=== PATIENT | female | born 1990 | race Caucasian/White ===

== ENCOUNTER 2018-12-05 18:15 | Emergency (ER) | payer OTHER ==
[~2018-12-05] VITALS: Ht 167.6 cm; Wt 114.1 kg
--- NOTE | 2018-12-05 18:42 | ED.ADGEN ---
Adult General Chief Complaint Chief Complaint flank pain HPI HPI 28 years old female presented to the emergency department with right flank pain radiating to the right lower quadrant associated with a urinary symptoms including dysuria hematuria and frequency also fever of 100 home. Nausea no vomiting no diarrhea no any other symptoms Review of Systems Review of Systems Constitutional: Denies fever or chills [] Eyes: Denies change in visual acuity, redness, or eye pain [] HENT: Denies nasal congestion or sore throat [] Respiratory: Denies cough or shortness of breath [] Cardiovascular: No additional information not addressed in HPI [] GI: vomiting, bloody stools or diarrhea [] : Denies dysuria or hematuria [] Musculoskeletal: Denies back pain or joint pain [] Integument: Denies rash or skin lesions [] Neurologic: Denies headache, focal weakness or sensory changes [] Endocrine: Denies polyuria or polydipsia [] All other systems were reviewed and found to be within normal limits, except as documented in this note. Current Medications Current Medications Current Medications Medications (Trade) Dose Ordered Sig/Efrain Start Time Stop Time Status Last Admin Dose Admin Ketorolac Tromethamine (Toradol 30mg Vial) 30 mg 1X ONCE 12/05/18 19:30 12/05/18 19:31 DC Allergies Allergies Allergies Coded Allergies Type Severity Reaction Last Updated Verified adhesive tape Allergy Intermediate 12/05/18 Yes Physical Exam Physical Exam Constitutional: Well developed, well nourished, no acute distress, non-toxic appearance. [] HENT: Normocephalic, atraumatic, bilateral external ears normal, oropharynx moist, no oral exudates, nose normal. [] Eyes: PERRLA, EOMI, conjunctiva normal, no discharge. [] Neck: Normal range of motion, no tenderness, supple, no stridor. [] Cardiovascular:Heart rate regular rhythm, no murmur [] Lungs & Thorax: Bilateral breath sounds clear to auscultation [] Abdomen: Bowel sounds normal, soft, no tenderness, no masses, no pulsatile masses. [] Skin: Warm, dry, no erythema, no rash. [] Back: No tenderness, no CVA tenderness. [] Extremities: No tenderness, no cyanosis, no clubbing, ROM intact, no edema. [] Neurologic: Alert and oriented X 3, normal motor function, normal sensory function, no focal deficits noted. [] Psychologic: Affect normal, judgement normal, mood normal. [] Current Patient Data Vital Signs Vital Signs Date Time Temp Pulse Resp B/P (MAP) Pulse Ox O2 Delivery O2 Flow Rate FiO2 12/05/18 18:15 98.0 86 18 97 Room Air Lab Results Laboratory Tests Test 12/05/18 18:31 12/05/18 18:55 12/05/18 19:05 Urine Collection Type Unknown Urine Color Adore Urine Clarity Clear Urine pH 5.0 Urine Specific Hugo 1.025 Urine Protein 100 mg/dl (NEG-TRACE) Urine Glucose (UA) 100 mg/dL (NEG) Urine Ketones (Stick) Trace mg/dL (NEG) Urine Blood Small (NEG) Urine Nitrite Pos (NEG) Urine Bilirubin Neg (NEG) Urine Urobilinogen Dipstick 1 mg/dL (0.2 mg/dL) Urine Leukocyte Esterase Trace (NEG) Urine RBC 3-5 /HPF (0-2) Urine WBC 20-40 /HPF (0-4) Urine Squamous Epithelial Cells Occ /LPF Urine Bacteria Few /HPF (0-FEW) Urine Test Negative (NEG) White Blood Count 11.2 x10^3/uL (4.0-11.0) H Red Blood Count 4.75 x10^6/uL (3.50-5.40) Hemoglobin 14.2 g/dL (12.0-15.5) Hematocrit 41.9 % (36.0-47.0) Mean Corpuscular Volume 88 fL (79-100) Mean Corpuscular Hemoglobin 30 pg (25-35) Mean Corpuscular Hemoglobin Concent 34 g/dL (31-37) Red Cell Distribution Width 14.3 % (11.5-14.5) Platelet Count 352 x10^3/uL (140-400) Neutrophils (%) (Auto) 55 % (31-73) Lymphocytes (%) (Auto) 35 % (24-48) Monocytes (%) (Auto) 4 % (0-9) Eosinophils (%) (Auto) 5 % (0-3) H Basophils (%) (Auto) 1 % (0-3) Neutrophils # (Auto) 6.2 x10^3uL (1.8-7.7) Lymphocytes # (Auto) 3.9 x10^3/uL (1.0-4.8) Monocytes # (Auto) 0.5 x10^3/uL (0.0-1.1) Eosinophils # (Auto) 0.5 x10^3/uL (0.0-0.7) Basophils # (Auto) 0.1 x10^3/uL (0.0-0.2) Sodium Level 141 mmol/L (136-145) Potassium Level 3.5 mmol/L (3.5-5.1) Chloride Level 103 mmol/L (98-107) Carbon Dioxide Level 28 mmol/L (21-32) Anion Gap 10 (6-14) Blood Urea Nitrogen 17 mg/dL (7-20) Creatinine 0.8 mg/dL (0.6-1.0) Estimated GFR (Cockcroft-Gault) 84.2 BUN/Creatinine Ratio 21 (6-20) H Glucose Level 94 mg/dL (70-99) Calcium Level 9.3 mg/dL (8.5-10.1) Total Bilirubin 0.2 mg/dL (0.2-1.0) Aspartate Amino Transferase (AST) 19 U/L (15-37) Alanine Aminotransferase (ALT) 31 U/L (14-59) Alkaline Phosphatase 79 U/L (46-116) Total Protein 8.1 g/dL (6.4-8.2) Albumin 3.8 g/dL (3.4-5.0) Albumin/Globulin Ratio 0.9 (1.0-1.7) L Lipase 111 U/L (73-393) POC Urine HCG, Qualitative hcg negative (Negative) EKG EKG [] Radiology/Procedures Radiology/Procedures [] Course & Med Decision Making Course & Med Decision Making Patient labs and x-rays discussed with the patient, diagnosis conformed pyelonephritis was start her on Rocephin in the emergency department and ciprofloxacin and outpatient she is to follow-up with her primary care provider [] Final Impression Final Impression [] Problems: (1) Pyelonephritis Dragon Disclaimer Dragon Disclaimer This electronic medical record was generated, in whole or in part, using a voice recognition dictation system. JOSEPH LEIJA MD Dec 05, 2018 18:42
[2018-12-05 19:17] LABS: BASO # 0.1 x10^3/uL (0.0-0.2); BASO % 1 % (0-3); EOS # 0.5 x10^3/uL (0.0-0.7); EOS % 5 % (0-3); HEMATOCRIT 41.9 % (36.0-47.0); HEMOGLOBIN 14.2 g/dL (12.0-15.5); LYMPH # 3.9 x10^3/uL (1.0-4.8); LYMPH % 35 % (24-48); MEAN CORPUSCULAR HEMOGLOBIN 30 pg (25-35); MEAN CORPUSCULAR HGB CONC 34 g/dL (31-37); MEAN CORPUSCULAR VOLUME 88 fL (79-100); MONO # 0.5 x10^3/uL (0.0-1.1); MONO % 4 % (0-9); NEUT # 6.2 x10^3uL (1.8-7.7); NEUT % 55 % (31-73); PLATELET COUNT 352 x10^3/uL (140-400); RED BLOOD COUNT 4.75 x10^6/uL (3.50-5.40); RED CELL DISTRIBUTION WIDTH 14.3 % (11.5-14.5); WHITE BLOOD COUNT 11.2 x10^3/uL (4.0-11.0)
--- NOTE | 2018-12-05 19:29 | RAD ---
Abdominal and Pelvis CT, Without Contrast: History: Severe right-sided flank pain. Ortega's sarcoma with radiation at age 10 Comparison: None. Procedure: Axial images are obtained of the abdomen and pelvis, without IV or oral contrast. CT Abdomen without Contrast: Findings: Evaluation of solid organs is limited without contrast. Evaluation of stomach and bowel is limited without oral contrast. Liver: Normal. Spleen: Normal. Pancreas: Normal. Adrenal Glands: Normal. Kidneys: Normal. There is no free air or free fluid. There is no lymphadenopathy. Impression: Please see CT Pelvis without Contrast. End Impression. CT Pelvis without Contrast: Findings: The urinary bladder is mostly collapsed. The appendix is normal. There is thickening of the anterior column of the left hip and of the pubic rami on the left with sclerotic changes of the trabecula.. There are sclerotic changes of the SI joints bilaterally. There is no free fluid. There is no lymphadenopathy. There is no pericolonic inflammation identified. Impression: 1. No evidence of urolithiasis or obstructive uropathy. 2. 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 3. Sclerotic changes of the SI joints bilaterally suggest sacroiliitis. 4. No acute findings. End impression PQRS Compliance Statement: One or more of the following individualized dose reduction techniques were utilized for this examination: 1. Automated exposure control 2. Adjustment of the mA and/or kV according to patient size 3. Use of iterative reconstruction technique Electronically signed by: Garrick Martínez III, MD (12/05/2018 7:25 PM) [facility]
[2018-12-05] MEDS ORDERED: KETOROLAC 30 MG/ML VIAL. IV ONE (19:30)
[2018-12-05 19:36] LABS: ALBUMIN 3.8 g/dL (3.4-5.0); ALBUMIN/GLOBULIN RATIO 0.9 (1.0-1.7); CALCIUM 9.3 mg/dL (8.5-10.1); CREATININE 0.8 mg/dL (0.6-1.0); GFR 84.2; POTASSIUM 3.5 mmol/L (3.5-5.1); TOTAL BILIRUBIN 0.2 mg/dL (0.2-1.0); TOTAL PROTEIN 8.1 g/dL (6.4-8.2)
[2018-12-05 19:37] LABS: BILIRUBIN,URINE NEG (NEG); CLARITY,URINE CLEAR; COLOR,URINE AMBER; GLUCOSE,URINE 100 mg/dL (NEG); NITRITE,URINE POS (NEG); UROBILINOGEN,URINE 1 mg/dL (0.2 mg/dL); WBC,URINE 20-40 /HPF (0-4)
[2018-12-05 19:38] LABS: BACTERIA,URINE FEW /HPF (0-FEW); SQUAMOUS EPITHELIAL CELL,UR OCC /LPF; U PREG PATIENT NEGATIVE (NEG)
[2018-12-05] MEDS ORDERED: HYDR-3165 PO (19:44)
[2018-12-05] MEDS ORDERED: CIPR500T94 PO (19:44)
[2018-12-05] MEDS ORDERED: IV NORMAL SALINE 50ML 50 ML ONE (19:50)
[2018-12-05] MEDS ORDERED: cefTRIAXone SODIUM 1 GM VIAL IV ONE (19:50)
[2018-12-05 20:35] VITALS: BP 131/81
== END 2018-12-05 20:35 | disposition home or self-care (01) ==
LOC: ER 18:15
DX: N12 Tubulo-interstitial nephritis, not specified as acute or chronic (principal); Z88.8 Allergy status to other drugs, medicaments and biological substances
CPT/HCPCS: 36415; 74176; 80053; 81001; 81025; 83690; 85025; 87086; 96365; 96375; 99284; J0696; J1885

== ENCOUNTER 2019-03-03 14:14 | Emergency (ER) | payer OTHER ==
[~2019-03-03] VITALS: Ht 167.6 cm; Wt 113.7 kg
[~2019-03-03 14:14] MED LIST: CIPR500T94 PO; HYDR-3165 PO
[2019-03-03 14:20] VITALS: BP 136/86
[2019-03-03] MEDS ORDERED: KETOROLAC 15 MG/ML VIAL. IM ONE (14:30)
--- NOTE | 2019-03-03 14:43 | PHYS DOC ---
Past History Past Medical History: Kidney Infection, Other Additional Past Medical Histor: osteosarcoma Past Surgical History: Tonsillectomy, Other Smoking: Cigarettes Alcohol Use: None Drug Use: Marijuana Adult General Chief Complaint Chief Complaint: WRIST PAIN HPI HPI Patient is a 28-year-old female with right wrist pain. Patient tripped and fell on outstretched hand approximately 30 minutes prior to arrival. She has a previous history of radius fracture on that side. She is right-hand dominant. Increased pain with movement. Pain is moderate to severe in intensity, sharp in nature. No numbness or tingling.[] Review of Systems Review of Systems Constitutional: Denies fever or chills [] Eyes: Denies change in visual acuity, redness, or eye pain [] HENT: Denies nasal congestion or sore throat [] Respiratory: Denies cough or shortness of breath [] Cardiovascular: No chest pain or palpitations[] GI: Denies abdominal pain, nausea, vomiting, bloody stools or diarrhea [] : Denies dysuria or hematuria [] Musculoskeletal: Denies back pain, see history of present illness[] Integument: Denies rash or skin lesions [] Neurologic: Denies headache, focal weakness or sensory changes [] Endocrine: Denies polyuria or polydipsia [] All other systems were reviewed and found to be within normal limits, except as documented in this note. Allergies Allergies Allergies Coded Allergies Type Severity Reaction Last Updated Verified adhesive tape Allergy Intermediate 12/05/18 Yes Physical Exam Physical Exam Constitutional: Well developed, well nourished, moderate discomfort, non-toxic appearance. [] HENT: Normocephalic, atraumatic, bilateral external ears normal, oropharynx moist, no oral exudates, nose normal. [] Eyes: PERRLA, EOMI, conjunctiva normal, no discharge. [] Neck: Normal range of motion, no tenderness, supple, no stridor. [] Cardiovascular:Heart rate regular rhythm, no murmur [] Lungs & Thorax: Bilateral breath sounds clear to auscultation [] Abdomen: Not examined[] Skin: Warm, dry, no erythema, no rash. [] Back: No tenderness, no CVA tenderness. [] Extremities: Right wrist has tenderness to palpation across the radius and ulna distally. Decreased active range of motion secondary to pain. FDS, FDP, and extensor mechanisms are intact. 2 point discrimination less than 5 mm. The other 3 extremities show: No tenderness, no cyanosis, no clubbing, ROM intact, no edema. [] Neurologic: Alert and oriented X 3, normal motor function, normal sensory function, no focal deficits noted. [] Psychologic: Affect normal, judgement normal, mood normal. [] EKG EKG [] Radiology/Procedures Radiology/Procedures PROCEDURE: WRIST 3V RIGHT WRIST 3V RIGHT History: fell today, right wrist pain Comparison: None. Findings: 3 views of the right wrist are submitted. No acute fracture or dislocation is identified by radiographs. Impression: 1. No acute radiographic abnormality is identified.[] Course & Med Decision Making Course & Med Decision Making Pertinent Labs and Imaging studies reviewed. (See chart for details) ED course: Patient arrived, was placed in bed, and tolerated exam well. She received parental pain medication. She was transferred to and from radiology with any complications. After the return the imaging findings, these were discu ssed with the patient and her family voiced understanding. All questions were answered. Patient was placed in a splint. She was distally neurovascularly intact after splint placement. She was discharged in improved condition. Medical decision making: There is no evidence of a fracture, dislocation, nor neuro or vascular compromise. No evidence of significant ligamentous or tendino us injury.[] Dragon Disclaimer Dragon Disclaimer This electronic medical record was generated, in whole or in part, using a voice recognition dictation system. Departure Departure: Impression: Primary Impression: Right wrist sprain Disposition: HOME, SELF-CARE Condition: IMPROVED Referrals: PCP,NO (PCP) Patient Instructions: Wrist Sprain with [facility] Additional Instructions: Follow-up with your regular doctor in 2 days. If you do not have regular doctor, list of local clinics will be provided for you. Take medication as prescribed. Return to the ER if worsening pain, weakness, or any other concerns. Scripts Meloxicam (MELOXICAM) 7.5 Mg Tablet 7.5 MG PO DAILY for PAIN, #20 TAB Prov: YONY JIMÉNEZ DO 03/03/19 Problem Qualifiers Primary Impression: Right wrist sprain Encounter type: initial encounter Qualified Codes: S63.501A - Unspecified sprain of right wrist, initial encounter YONY JIMÉNEZ DO Mar 03, 2019 14:43
--- NOTE | 2019-03-03 15:01 | RAD ---
WRIST 3V RIGHT History: fell today, right wrist pain Comparison: None. Findings: 3 views of the right wrist are submitted. No acute fracture or dislocation is identified by radiographs. Impression: 1. No acute radiographic abnormality is identified. Electronically signed by: James Rahman MD (03/03/2019 2:59 PM) [facility]
[2019-03-03] MEDS ORDERED: MELO7.5T29 PO (15:15)
== END 2019-03-03 15:18 | disposition home or self-care (01) ==
LOC: ER 14:14
DX: S63.501A Unspecified sprain of right wrist, initial encounter (principal); F17.210 Nicotine dependence, cigarettes, uncomplicated; Z88.8 Allergy status to other drugs, medicaments and biological substances; W18.39XA Other fall on same level, initial encounter; Y93.89 Activity, other specified; Y92.89 Other specified places as the place of occurrence of the external cause; Y99.8 Other external cause status
CPT/HCPCS: 29125; 73110; 96372; 99284; J1885

== ENCOUNTER 2019-04-03 14:21 | Emergency (ER) | payer OTHER ==
[~2019-04-03] VITALS: Ht 167.6 cm; Wt 111.3 kg
[~2019-04-03 14:21] MED LIST changes: +MELO7.5T29 PO
[2019-04-03] MEDS ORDERED: ALBUTEROL SULFATE 2.5 MG/3 ML NEBU. ONE (14:39)
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
[2019-04-03] MEDS ORDERED: NAPROXEN 500 MG TABLET PO ONE (15:45)
[2019-04-03 16:37] VITALS: BP 108/71
== END 2019-04-03 16:02 | disposition home or self-care (01) ==
LOC: ER 14:21
DX: T59.811A Toxic effect of smoke, accidental (unintentional), initial encounter (principal); J68.9 Unspecified respiratory condition due to chemicals, gases, fumes and vapors; F17.210 Nicotine dependence, cigarettes, uncomplicated; Z87.440 Personal history of urinary (tract) infections; Z88.8 Allergy status to other drugs, medicaments and biological substances; Y92.89 Other specified places as the place of occurrence of the external cause
CPT/HCPCS: 94640; 99283-25

== ENCOUNTER → 2020-05-13 | Outpatient (CLI) | payer OTHER ==
[~2020-05-13] MED LIST changes: +LEVO750T5 PO
--- NOTE | 2020-05-13 16:15 | RAD ---
PROCEDURE: ELBOW LEFT 2V STUDY DATE: 05/13/2020 CLINICAL INDICATION / HISTORY: Reason: MASS ON LEFT ELBOW, HX BONE CA / Spl. Instructions: / History: . TECHNIQUE: Left Elbow 2 views COMPARISON: None FINDINGS: Two views of the left elbow demonstrate no evidence of fracture, subluxation, or dislocation. Soft tissues unremarkable. IMPRESSION: No acute osseous abnormality. Electronically signed by: Andi Gastelum MD (05/13/2020 4:12 PM) [id number]
== END ==
LOC: DXRAD 12:58
PROVIDERS: ATTEND Family Medicine
DX: R22.32 Localized swelling, mass and lump, left upper limb (principal)
CPT/HCPCS: 73070

== ENCOUNTER 2020-07-11 21:03 | Emergency (ER) | payer OTHER ==
[~2020-07-11] VITALS: Ht 165.1 cm; Wt 116.3 kg
[~2020-07-11 21:03] MED LIST changes: -LEVO750T5 PO
[2020-07-11] MEDS ORDERED: IV NORMAL SALINE 1,000ML 1,000 ML IV ONE (21:15)
[2020-07-11] MEDS ORDERED: ONDANSETRON PF 4 MG/2 ML VIAL. IVP ONE (21:45)
[2020-07-11] MEDS ORDERED: MORPHINE SULFATE 4 MG/ML DISP.SYRIN. IV ONE (21:45)
[2020-07-11 21:54] LABS: BASO # 0.2 x10^3/uL (0.0-0.2); BASO % 1 % (0-3); EOS # 0.4 x10^3/uL (0.0-0.7); EOS % 3 % (0-3); LYMPH # 3.5 x10^3/uL (1.0-4.8); LYMPH % 22 % (24-48); MEAN CORPUSCULAR HEMOGLOBIN 30 pg (25-35); MEAN CORPUSCULAR HGB CONC 33 g/dL (31-37); MEAN CORPUSCULAR VOLUME 89 fL (79-100); MONO # 0.9 x10^3/uL (0.0-1.1); MONO % 6 % (0-9); NEUT # 10.7 x10^3uL (1.8-7.7); NEUT % 68 % (31-73); PLATELET COUNT 299 x10^3/uL (140-400); RED BLOOD COUNT 4.71 x10^6/uL (3.50-5.40); RED CELL DISTRIBUTION WIDTH 14.1 % (11.5-14.5); WHITE BLOOD COUNT 15.6 x10^3/uL (4.0-11.0)
[2020-07-11 22:02] LABS: CLARITY,URINE CLOUDY; COLOR,URINE YELLOW
[2020-07-11 22:03] LABS: BACTERIA,URINE FEW /HPF (0-FEW); BILIRUBIN,URINE NEG (NEG); GLUCOSE,URINE NEG (NEG); NITRITE,URINE NEG (NEG); UROBILINOGEN,URINE 0.2 mg/dL (0.2 mg/dL); WBC,URINE >40 /HPF (0-4)
[2020-07-11 22:04] LABS: CALCIUM 9.3 mg/dL (8.5-10.1); GFR 64.7; POTASSIUM 3.3 mmol/L (3.5-5.1)
[2020-07-11 22:10] LABS: ALBUMIN 3.6 g/dL (3.4-5.0); ALBUMIN/GLOBULIN RATIO 0.9 (1.0-1.7); TOTAL BILIRUBIN 0.3 mg/dL (0.2-1.0); TOTAL PROTEIN 7.8 g/dL (6.4-8.2)
--- NOTE | 2020-07-11 22:12 | RAD ---
Exam: CT of abdomen and pelvis without contrast INDICATION: Left flank pain TECHNIQUE: Sequential axial images through the abdomen and pelvis obtained without IV contrast. Sagittal and coronal reformatted images were reconstructed from the axial data and reviewed. Comparisons: None FINDINGS: Heart size is normal. No pericardial effusion. Visualized lung bases are clear. No pleural effusion. Evaluation of solid organs is limited secondary to noncontrast technique. Diffuse hepatic steatosis. Spleen, pancreas, gallbladder and adrenals are unremarkable. There is mild prominence of the left renal collecting system. No renal or ureteral calculi are identified. Mild adjacent fat stranding at the left renal pelvis. Bladder is decompressed not well evaluated. Uterus is nonenlarged. No abnormal adnexal mass. Large and small bowel are unremarkable. Appendix is normal. No free intra-abdominal air or fluid. No obstruction. Abdominal aorta has a normal course and caliber. No enlarged abdominal lymph nodes are identified. No suspicious osseous lesions or acute fractures. IMPRESSION: Mild prominence of the left renal collecting system with fat stranding surrounding the left renal pelvis. Correlate with urinalysis for infection. No renal or ureteral calculi are identified. Exposure: One or more of the following in the visualized dose reduction techniques were utilized for this examination: 1. Automated exposure control 2. Adjustment of the MA and/or KV according to patient size 3. Use of iterative of reconstructive technique Electronically signed by: Sherron Foss MD (07/11/2020 10:09 PM) [id number]
[2020-07-11] MEDS ORDERED: LEVO750T5 PO (22:26)
--- NOTE | 2020-07-11 22:26 | PHYS DOC ---
Past History Past Medical History: Anxiety, Cancer, Kidney Infection, UTI, Other Additional Past Medical Histor: osteosarcoma Past Surgical History: Tonsillectomy, Other Additional Past Surgical Histo: CANCER SX Smoking: Cigarettes Alcohol Use: None Drug Use: Marijuana General Adult EDM: Chief Complaint: FLANK PAIN HPI: HPI: 29-year-old female presents with flank pain. Patient started having more severe pain today. She has felt like she had increased urinary frequency and dysuria for almost 2 weeks. She tried Azo without relief. She presents tonight because the pain is too severe. She has had a kidney stone in the past. She states that this current pain is worse. She denies fever at home. She does not have a fever on arrival. Review of Systems: Review of Systems: Constitutional: Denies fever or chills Eyes: Denies change in visual acuity HENT: Denies nasal congestion or sore throat Respiratory: Denies cough or shortness of breath Cardiovascular: Denies chest pain or edema GI: Denies abdominal pain, nausea, vomiting, bloody stools or diarrhea : Denies dysuria Musculoskeletal: Denies back pain or joint pain Integument: Denies rash Neurologic: Denies headache, focal weakness or sensory changes Endocrine: Denies polyuria or polydipsia Lymphatic: Denies swollen glands Psychiatric: Denies depression or anxiety Heart Score: Risk Factors: Risk Factors: DM, Current or recent (<one month) smoker, HTN, HLP, family history of CAD, obesity. Risk Scores: Score 0 - 3: 2.5% MACE over next 6 weeks - Discharge Home Score 4 - 6: 20.3% MACE over next 6 weeks - Admit for Clinical Observation Score 7 - 10: 72.7% MACE over next 6 weeks - Early Invasive Strategies Current Medications: Current Meds: Current Medications Medications (Trade) Dose Ordered Sig/[facility] Start Time Stop Time Status Last Admin Dose Admin Morphine Sulfate (Morphine 4mg Syringe) 4 mg 1X ONCE 07/11/20 21:45 07/11/20 21:46 DC Ondansetron HCl (Zofran) 4 mg 1X ONCE 07/11/20 21:45 07/11/20 21:46 DC Sodium Chloride 1,000 ml @ 1,000 mls/hr 1X ONCE 07/11/20 21:15 07/11/20 22:14 DC Allergies: Allergies: Allergies Coded Allergies Type Severity Reaction Last Updated Verified adhesive tape Allergy Intermediate 12/05/18 Yes Physical Exam: PE: Constitutional: Well developed, well nourished, no acute distress, non-toxic appearance. [] HENT: Normocephalic, atraumatic, bilateral external ears normal, oropharynx moist, no oral exudates, nose normal. [] Eyes: PERRLA, EOMI, conjunctiva normal, no discharge. [] Neck: Normal range of motion, no tenderness, supple, no stridor. [] Cardiovascular:Heart rate regular rhythm, no murmur [] Lungs & Thorax: Bilateral breath sounds clear to auscultation [] Abdomen: Bowel sounds normal, soft, no tenderness, no masses, no pulsatile masses. [] Skin: Warm, dry, no erythema, no rash. [] Back: No tenderness, no CVA tenderness. [] Extremities: No tenderness, no cyanosis, no clubbing, ROM intact, no edema. [] Neurologic: Alert and oriented X 3, normal motor function, normal sensory function, no focal deficits noted. [] Psychologic: Affect normal, judgement normal, mood normal. [] Current Patient Data: Labs: Laboratory Tests Test 07/11/20 21:15 07/11/20 21:34 07/11/20 21:40 Urine Collection Type Unknown Urine Color Yellow Urine Clarity Cloudy Urine pH 7.0 Urine Specific [place] 1.020 Urine Protein 100 mg/dl (NEG-TRACE) Urine Glucose (UA) Neg mg/dL (NEG) Urine Ketones (Stick) Neg mg/dL (NEG) Urine Blood Large (NEG) Urine Nitrite Neg (NEG) Urine Bilirubin Neg (NEG) Urine Urobilinogen Dipstick 0.2 mg/dL (0.2 mg/dL) Urine Leukocyte Esterase Large (NEG) Urine RBC 6-10 /HPF (0-2) Urine WBC >40 /HPF (0-4) Urine Squamous Epithelial Cells None /LPF Urine Bacteria Few /HPF (0-FEW) Urine Mucus Slight /LPF POC Urine HCG, Qualitative hcg negative (Negative) White Blood Count 15.6 x10^3/uL (4.0-11.0) H Red Blood Count 4.71 x10^6/uL (3.50-5.40) Hemoglobin 14.0 g/dL (12.0-15.5) Hematocrit 42.0 % (36.0-47.0) Mean Corpuscular Volume 89 fL (79-100) Mean Corpuscular Hemoglobin 30 pg (25-35) Mean Corpuscular Hemoglobin Concent 33 g/dL (31-37) Red Cell Distribution Width 14.1 % (11.5-14.5) Platelet Count 299 x10^3/uL (140-400) Neutrophils (%) (Auto) 68 % (31-73) Lymphocytes (%) (Auto) 22 % (24-48) L Monocytes (%) (Auto) 6 % (0-9) Eosinophils (%) (Auto) 3 % (0-3) Basophils (%) (Auto) 1 % (0-3) Neutrophils # (Auto) 10.7 x10^3uL (1.8-7.7) H Lymphocytes # (Auto) 3.5 x10^3/uL (1.0-4.8) Monocytes # (Auto) 0.9 x10^3/uL (0.0-1.1) Eosinophils # (Auto) 0.4 x10^3/uL (0.0-0.7) Basophils # (Auto) 0.2 x10^3/uL (0.0-0.2) Platelet Estimate Pending Sodium Level 142 mmol/L (136-145) Potassium Level 3.3 mmol/L (3.5-5.1) L Chloride Level 107 mmol/L (98-107) Carbon Dioxide Level 24 mmol/L (21-32) Anion Gap 11 (6-14) Blood Urea Nitrogen 8 mg/dL (7-20) Creatinine 1.0 mg/dL (0.6-1.0) Estimated GFR (Cockcroft-Gault) 64.7 BUN/Creatinine Ratio 8 (6-20) Glucose Level 128 mg/dL (70-99) H Calcium Level 9.3 mg/dL (8.5-10.1) Total Bilirubin 0.3 mg/dL (0.2-1.0) Aspartate Amino Transferase (AST) 23 U/L (15-37) Alanine Aminotransferase (ALT) 43 U/L (14-59) Alkaline Phosphatase 79 U/L (46-116) Total Protein 7.8 g/dL (6.4-8.2) Albumin 3.6 g/dL (3.4-5.0) Albumin/Globulin Ratio 0.9 (1.0-1.7) L Vital Signs: Vital Signs Date Time Temp Pulse Resp B/P (MAP) Pulse Ox O2 Delivery O2 Flow Rate FiO2 07/11/20 21:15 98.2 106 20 144/86 (105) 96 Room Air EKG: EKG: [] Radiology/Procedures: Radiology/Procedures: [] Impressions: Exam: CT of abdomen and pelvis without contrast INDICATION: Left flank pain TECHNIQUE: Sequential axial images through the abdomen and pelvis obtained without IV contrast. Sagittal and coronal reformatted images were reconstructed from the axial data and reviewed. Comparisons: None FINDINGS: Heart size is normal. No pericardial effusion. Visualized lung bases are clear. No pleural effusion. Evaluation of solid organs is limited secondary to noncontrast technique. Diffuse hepatic steatosis. Spleen, pancreas, gallbladder and adrenals are unremarkable. There is mild prominence of the left renal collecting system. No renal or ureteral calculi are identified. Mild adjacent fat stranding at the left renal pelvis. Bladder is decompressed not well evaluated. Uterus is nonenlarged. No abnormal adnexal mass. Large and small bowel are unremarkable. Appendix is normal. No free intra-abdominal air or fluid. No obstruction. Abdominal aorta has a normal course and caliber. No enlarged abdominal lymph nodes are identified. No suspicious osseous lesions or acute fractures. IMPRESSION: Mild prominence of the left renal collecting system with fat stranding surrounding the left renal pelvis. Correlate with urinalysis for infection. No renal or ureteral calculi are identified. Exposure: One or more of the following in the visualized dose reduction techniques were utilized for this examination: 1. Automated exposure control 2. Adjustment of the MA and/or KV according to patient size 3. Use of iterative of reconstructive technique Electronically signed by: Alfonso Desai MD (07/11/2020 10:09 PM) [id number] DICTATED AND SIGNED BY: ALFONSO DESAI MD DATE: 07/11/202208 CC: ANISH MATHUR DO; LISSETTE WHITFIELD MD ~ Course & Med Decision Making: Course & Med Decision Making Pertinent Labs and Imaging studies reviewed. (See chart for details) The patient's labs are significant for an elevated white count. Her urinalysis significant for urinary tract infection. Her CT scan does not show an obstructive stone, but it does show evidence of pyelonephritis. The patient does not have a fever in the emergency room. Her vital signs are within normal limits. I will treat her with 1 g of Rocephin IV followed by 7 days of levofloxacin 750 mg orally. She is stable for discharge at this time. [] Dragon Disclaimer: Dragon Disclaimer: This electronic medical record was generated, in whole or in part, using a voice recognition dictation system. Departure Departure: Impression: Primary Impression: Pyelonephritis Disposition: 01 HOME/RESIDENCE PRIOR TO ADM Condition: STABLE Referrals: LISSETTE WHITFIELD MD (PCP) Patient Instructions: Pyelonephritis, Adult, [id number] Levofloxacin (LEVOFLOXACIN) 750 Mg Tablet 1 TAB PO DAILY for UTI for 7 Days, #7 TAB Prov: ANISH MATHUR DO 07/11/20 Justification of Admission: Justification of Admission: Justification of Admission Dx: N/A ANISH MATHUR DO Jul 11, 2020 22:26
[2020-07-11] MEDS ORDERED: HYDR-3165 PO (22:27)
[2020-07-11] MEDS ORDERED: cefTRIAXone SODIUM 1 GM VIAL ONE (22:30)
[2020-07-11] MEDS ORDERED: IV NORMAL SALINE 50ML 50 ML ONE (22:30)
[2020-07-11 22:42] LABS: % ATYL 3 % (0-0); % BANDS 3 % (0-9); % EOS 4 % (0-5); % LYMPHS 21 % (24-48); % MONOS 9 % (0-10); % SEGS 60 % (35-66)
[2020-07-11 22:43] LABS: PLT ESTIMATE ADEQUATE (ADEQUATE)
== END 2020-07-11 23:00 | disposition home or self-care (01) ==
LOC: ER 21:03
DX: N12 Tubulo-interstitial nephritis, not specified as acute or chronic (principal); F17.210 Nicotine dependence, cigarettes, uncomplicated; Z87.440 Personal history of urinary (tract) infections; Z88.8 Allergy status to other drugs, medicaments and biological substances
CPT/HCPCS: 36415; 74176; 80053; 81001; 81025; 85007; 85025; 87077; 87086; 87186; 96361; 96365; 96375; 99284; J0696; J2270; J2405; J7030; 99285-25